=== PATIENT | female | born 1990 | race Caucasian/White ===

== ENCOUNTER 2023-08-12 10:33 | Outpatient (CLI) | payer BC | END 2023-08-12 10:34 | disposition home or self-care (01) | LOC: RAD 10:33 | PROVIDERS: ATTEND Orthopaedic Surgery | DX: R10.9 Unspecified abdominal pain (principal); R11.2 Nausea with vomiting, unspecified | CPT/HCPCS: 74246 ==

== ENCOUNTER 2024-06-08 20:39 | Inpatient (IN) | payer BC, SELFPAY ==
[2024-06-08 21:23] VITALS: BMI 28.2
[2024-06-08] MEDS ORDERED: Ondansetron PF 4 MG/2 ML Vial IVP PRN (21:49)
[2024-06-08] MEDS ORDERED: traMADol HCl 50 MG TAB PO PRN (21:49)
[2024-06-08] MEDS: Morphine 4 MG/ML VIAL SLOW IVP PRN (22:23)
[2024-06-09] MEDS: Famotidine 20 MG TAB PO SCH (08:17)
[2024-06-09] MEDS ORDERED: traMADol HCl 50 MG TAB PO PRN (09:17)
[2024-06-09 12:07] LABS: #Basophils Less than 0.03 10x3/uL (0.0-0.2); %Basophils 0.2 % (0.0-1.0); %Eosinophils 1.2 % (0.0-10.0); %Lymphocytes 28.1 % (21.0-51.0); %Monocytes 5.5 % (0.0-10.0); %Neutrophils 64.6 % (42.0-75.0); Hematocrit 38.9 % (36.0-47.0); Hemoglobin 12.4 g/dL (12.0-16.0); Mean Corpuscular HGB CONC 31.9 g/dL (32.0-36.0); Mean Corpuscular Hemoglobin 30.2 pg (27.0-31.0); Mean Corpuscular Volume 94.9 fL (78.0-98.0); Mean Platelet Volume 10.8 fL (7.4-10.4); Platelet Count 203 10x3/uL (130-400); RBC Distribution Width 12.9 % (11.5-14.5)
[2024-06-09 13:38] LABS: Bilirubin, Total 2.8 mg/dL (0.2-1.2)
[2024-06-09 13:41] LABS: ALT (SGPT) 624 U/L (8-55); AST (SGOT) 251 U/L (5-34); Albumin 3.8 g/dL (3.5-5.0); Alkaline Phosphatase 162 U/L (40-110); Anion Gap 14 mmol/L (10-20); BUN (Urea Nitrogen) 7 mg/dL (7.0-18.7); Calc. Creatinine Clearance 151 mL/min (70-130); Calcium 9.2 mg/dL (7.8-10.44); Carbon Dioxide 22 mmol/L (22-29); Chloride 110 mmol/L (98-107); Estimated GFR 119; Globulin 2.8 g/dL (2.4-3.5); Glucose 64 mg/dL (70-105); Potassium 3.6 mmol/L (3.5-5.1); Protein, Total 6.6 g/dL (6.0-8.3); Sodium 142 mmol/L (136-145)
[2024-06-09] MEDS: Lorazepam 2 MG/ML VIAL SLOW IVP SCH (14:25)
[2024-06-09] MEDS: Lorazepam 2 MG/ML VIAL ONE (14:26)
[2024-06-09] MEDS: Sodium Chloride 0.9% 1,000 ML IV SCH (14:26)
[2024-06-09] MEDS: traMADol HCl 50 MG TAB PO SCH (14:27)
[2024-06-09 17:02] LABS: INR-International Normal Ratio 1.1; Prothrombin Time 14.3 sec (12.0-14.7)
[2024-06-09 17:03] LABS: PTT 29.5 sec (22.9-36.1)
[2024-06-09] MEDS: Pantoprazole DR 40 MG TAB PO SCH (20:33)
[2024-06-10 07:00] LABS: #Basophils Less than 0.03 10x3/uL (0.0-0.2); %Basophils 0.3 % (0.0-1.0); %Eosinophils 1.6 % (0.0-10.0); %Lymphocytes 34.3 % (21.0-51.0); %Monocytes 5.4 % (0.0-10.0); %Neutrophils 58.1 % (42.0-75.0); Hematocrit 37.4 % (36.0-47.0); Hemoglobin 12.2 g/dL (12.0-16.0); Mean Corpuscular HGB CONC 32.6 g/dL (32.0-36.0); Mean Corpuscular Hemoglobin 29.8 pg (27.0-31.0); Mean Corpuscular Volume 91.4 fL (78.0-98.0); Platelet Count 230 10x3/uL (130-400); RBC Distribution Width 12.6 % (11.5-14.5); Red Blood Cell (RBC) Count 4.09 mill/uL (4.20-5.40)
[2024-06-10] MEDS ORDERED: EPINEPHrine 1 MG/ML VIAL ONE (07:11)
[2024-06-10] MEDS ORDERED: Bupivacaine 0.25% HCL 30 ML VIAL ONE (07:11)
[2024-06-10] MEDS ORDERED: Iopamidol 30 ML ONE (07:11)
[2024-06-10 07:18] LABS: ALT (SGPT) 464 U/L (8-55); AST (SGOT) 110 U/L (5-34); Albumin 3.7 g/dL (3.5-5.0); Alkaline Phosphatase 153 U/L (40-110); Anion Gap 11 mmol/L (10-20); BUN (Urea Nitrogen) 5 mg/dL (7.0-18.7); Bilirubin, Total 1.7 mg/dL (0.2-1.2); Calc. Creatinine Clearance 158 mL/min (70-130); Calcium 9.1 mg/dL (7.8-10.44); Carbon Dioxide 20 mmol/L (22-29); Chloride 108 mmol/L (98-107); Estimated GFR 120; Globulin 2.7 g/dL (2.4-3.5); Glucose 67 mg/dL (70-105); Lipase 18 U/L (8-78); Potassium 3.7 mmol/L (3.5-5.1); Protein, Total 6.4 g/dL (6.0-8.3); Sodium 135 mmol/L (136-145)
[2024-06-10] MEDS ORDERED: Rocuronium Bromide 10 MG/ML (10ML VIAL) ONE (07:55)
[2024-06-10] MEDS ORDERED: fentaNYL PF 100 MCG/2 ML SYRINGE ONE ×2 (07:56→10:00)
[2024-06-10] MEDS ORDERED: PROPOFOL 20 ML ONE (07:56)
[2024-06-10] MEDS ORDERED: Midazolam HCl 2 mg/2 ml Vial ONE (07:57)
[2024-06-10] MEDS ORDERED: Ketorolac Tromethamine 30 MG (1 mL) VIAL ONE (08:32)
[2024-06-10] MEDS ORDERED: Ondansetron PF 4 MG/2 ML Vial ONE ×2 (08:32→10:00)
[2024-06-10] MEDS ORDERED: CEFAZOLIN 1 GM VIAL ONE (08:32)
[2024-06-10] MEDS ORDERED: Dexamethasone 20 MG/5 ML VIAL ONE (08:32)
[2024-06-10] MEDS ORDERED: NEOSTIGMINE 3 MG/3 ML SYRINGE ONE (08:32)
[2024-06-10] MEDS ORDERED: Glycopyrrolate 0.2 MG/ML 5 ML SYRINGE ONE (08:32)
[2024-06-10] MEDS ORDERED: Indomethacin 50 MG SUPP PR SCH (15:15)
[2024-06-10] MEDS: LevoFLOXacin 500 mg/D5W 500 MG in Premix 1 BAG IVPB SCH (16:38)
[2024-06-11 06:24] LABS: #Basophils Less than 0.03 10x3/uL (0.0-0.2); #Eosinphils Less than 0.03 10x3/uL (0.0-0.7); %Basophils 0.1 % (0.0-1.0); %Eosinophils 0.2 % (0.0-10.0); %Lymphocytes 19.8 % (21.0-51.0); %Monocytes 5.4 % (0.0-10.0); %Neutrophils 74.1 % (42.0-75.0); Hematocrit 33.8 % (36.0-47.0); Hemoglobin 11.4 g/dL (12.0-16.0); Mean Corpuscular HGB CONC 33.7 g/dL (32.0-36.0); Mean Corpuscular Hemoglobin 30.6 pg (27.0-31.0); Mean Corpuscular Volume 90.6 fL (78.0-98.0); Platelet Count 198 10x3/uL (130-400); RBC Distribution Width 12.6 % (11.5-14.5); Red Blood Cell (RBC) Count 3.73 mill/uL (4.20-5.40)
[2024-06-11 06:54] LABS: ALT (SGPT) 305 U/L (8-55); AST (SGOT) 62 U/L (5-34); Albumin 3.2 g/dL (3.5-5.0); Alkaline Phosphatase 117 U/L (40-110); Anion Gap 9 mmol/L (10-20); BUN (Urea Nitrogen) 4 mg/dL (7.0-18.7); Bilirubin, Total 1.3 mg/dL (0.2-1.2); Calc. Creatinine Clearance 161 mL/min (70-130); Calcium 8.8 mg/dL (7.8-10.44); Carbon Dioxide 20 mmol/L (22-29); Chloride 108 mmol/L (98-107); Estimated GFR 121; Globulin 2.4 g/dL (2.4-3.5); Glucose 79 mg/dL (70-105); Lipase 17 U/L (8-78); Potassium 3.4 mmol/L (3.5-5.1); Protein, Total 5.6 g/dL (6.0-8.3); Sodium 134 mmol/L (136-145)
[2024-06-11 06:55] LABS: ALT (SGPT) 310 U/L (8-55); AST (SGOT) 63 U/L (5-34); Albumin 3.3 g/dL (3.5-5.0); Alkaline Phosphatase 118 U/L (40-110); Bilirubin, Direct 0.6 mg/dL (0.1-0.3); Bilirubin, Total 1.3 mg/dL (0.2-1.2); Protein, Total 5.6 g/dL (6.0-8.3)
[2024-06-11] MEDS ORDERED: Iopamidol 30 ML ONE (07:52)
[2024-06-11] MEDS ORDERED: fentaNYL PF 100 MCG/2 ML SYRINGE ONE (07:53)
[2024-06-11] MEDS ORDERED: PROPOFOL 20 ML ONE (07:53)
[2024-06-11] MEDS ORDERED: Ondansetron PF 4 MG/2 ML Vial ONE (07:54)
[2024-06-11] MEDS ORDERED: Dexamethasone 20 MG/5 ML VIAL ONE (07:54)
[2024-06-11] MEDS ORDERED: Lidocaine 1% PF 5 ML VIAL ONE (07:54)
[2024-06-11] MEDS ORDERED: Lidocaine 2% 6 ML (Jelly) SYR ONE (07:55)
[2024-06-11] MEDS ORDERED: Indomethacin 50 MG SUPP ONE (09:04)
[2024-06-11] MEDS ORDERED: SUGAMMADEX SODIUM 200 MG/2 ML VIAL ONE (10:04)
[2024-06-11] MEDS ORDERED: Ondansetron HCl/PF 4 MG/2 ML Vial IVP PRN (10:19)
[2024-06-11] MEDS ORDERED: Promethazine HCl 25 MG/ML VIAL IM PRN (10:19)
[2024-06-11] MEDS ORDERED: Meperidine HCl/PF 25 MG (1 mL) VIAL ONE (10:21)
[2024-06-11] MEDS: Acetaminophen 325 MG TAB PO SCH (13:51)
[2024-06-12 06:50] LABS: #Basophils Less than 0.03 10x3/uL (0.0-0.2); #Eosinphils Less than 0.03 10x3/uL (0.0-0.7); %Basophils 0.2 % (0.0-1.0); %Eosinophils 0.2 % (0.0-10.0); %Lymphocytes 34.4 % (21.0-51.0); %Monocytes 5.7 % (0.0-10.0); %Neutrophils 59.2 % (42.0-75.0); Hematocrit 34.7 % (36.0-47.0); Hemoglobin 11.6 g/dL (12.0-16.0); Mean Corpuscular HGB CONC 33.4 g/dL (32.0-36.0); Mean Corpuscular Hemoglobin 30.5 pg (27.0-31.0); Mean Corpuscular Volume 91.3 fL (78.0-98.0); Mean Platelet Volume 11.5 fL (7.4-10.4); Platelet Count 206 10x3/uL (130-400)
[2024-06-12 07:28] LABS: Anion Gap 11 mmol/L (10-20); BUN (Urea Nitrogen) 7 mg/dL (7.0-18.7); Calc. Creatinine Clearance 143 mL/min (70-130); Carbon Dioxide 25 mmol/L (22-29); Chloride 108 mmol/L (98-107); Potassium 3.4 mmol/L (3.5-5.1); Sodium 141 mmol/L (136-145)
[2024-06-12 07:29] LABS: ALT (SGPT) 258 U/L (8-55); AST (SGOT) 64 U/L (5-34); Albumin 3.4 g/dL (3.5-5.0); Alkaline Phosphatase 117 U/L (40-110); Bilirubin, Total 1.2 mg/dL (0.2-1.2); Calcium 9.1 mg/dL (7.8-10.44); Estimated GFR 116; Globulin 2.4 g/dL (2.4-3.5); Glucose 93 mg/dL (70-105); Lipase 22 U/L (8-78); Protein, Total 5.8 g/dL (6.0-8.3)
[2024-06-12 08:09] VITALS: BP 108/69; TEMP 98.3
== END 2024-06-12 10:19 | disposition home or self-care (01) | DRG 419 ==
LOC: T4-A 20:44 → OBSVTOIN 21:49
PROVIDERS: ADMIT Specialist; ATTEND Specialist
PROC: 0FT44ZZ Resection of Gallbladder, Percutaneous Endoscopic Approach (ICD-10-PCS; principal; 2024-06-10)
PROC: BF13YZZ Fluoroscopy of Gallbladder and Bile Ducts using Other Contrast (ICD-10-PCS; 2024-06-10)
PROC: 0F798ZZ Dilation of Common Bile Duct, Via Natural or Artificial Opening Endoscopic (ICD-10-PCS; 2024-06-11)
PROC: BF10YZZ Fluoroscopy of Bile Ducts using Other Contrast (ICD-10-PCS; 2024-06-11)
DX: K80.42 Calculus of bile duct with acute cholecystitis without obstruction (principal); K21.9 Gastro-esophageal reflux disease without esophagitis; Z98.84 Bariatric surgery status; Z79.899 Other long term (current) drug therapy
CPT/HCPCS: 36415; 47532; 74181; 74330; 80053; 83690; 85025; 85610; 85730; 86850; 86900; 86901; 88304; C1713; C1769; J0171; J0665; J0690; J1100; J1885; J1956; J2060; J2175; J2250; J2270; J2405; J2704; J7050; Q9967